=== PATIENT | female | born 1955 | race Caucasian/White ===

== ENCOUNTER → 2018-11-23 09:09 | Outpatient (CLI) | payer OTHER, SELFPAY ==
--- NOTE | 2018-11-23 | DI.MG.S_ITS ---
BILATERAL DIGITAL SCREENING MAMMOGRAM 3D/2D WITH CAD: 11/23/2018 CLINICAL: Routine screening. Family history of breast cancer. Comparison is made to exams dated: 11/08/2017 mammogram, 11/07/2015 mammogram, and 04/27/2013 mammogram - [facility]. The tissue of both breasts is heterogeneously dense. This may lower the sensitivity of mammography. Current study was also evaluated with a Computer Aided Detection (CAD) system. No significant masses, calcifications, or other findings are seen in either breast. There has been no significant interval change. IMPRESSION: NEGATIVE There is no mammographic evidence of malignancy. A 1 year screening mammogram is recommended. This exam was interpreted at Station ID: [id number]. NOTE: For mammograms, a report in lay terms will be sent to the patient. Approximately 15% of breast malignancies will not be visualized mammographically. In the management of a palpable breast mass, a negative mammogram must not discourage biopsy of a clinically suspicious lesion. Electronically Signed By: Sadie cochran/yvette:11/23/2018 11:47:40 letter sent: Normal Exam ACR BI-RADS Category 1: Negative 3341F
== END ==
PROVIDERS: Family Provider Family Medicine; PCP Family Medicine; Visit Provider Nurse Practitioner Family
DX: Z12.31 Encounter for screening mammogram for malignant neoplasm of breast (principal)
CPT/HCPCS: 77063; 77067

== ENCOUNTER → 2020-04-08 11:35 | Outpatient (CLI) | payer OTHER, SELFPAY ==
--- NOTE | 2020-04-08 | DI.MG.S_ITS ---
BILATERAL DIGITAL SCREENING MAMMOGRAM 3D/2D WITH CAD: 04/08/2020 CLINICAL: Routine screening. Family history of breast cancer. Comparison is made to exams dated: 11/23/2018 mammogram, 11/08/2017 mammogram, 11/29/2015 mammogram, and 11/07/2015 mammogram - [facility]. There are scattered fibroglandular elements in both breasts. Current study was also evaluated with a Computer Aided Detection (CAD) system. No significant masses, calcifications, or other findings are seen in either breast. There has been no significant interval change. IMPRESSION: NEGATIVE There is no mammographic evidence of malignancy. A 1 year screening mammogram is recommended. This exam was interpreted at Station ID: [id number]. NOTE: For mammograms, a report in lay terms will be sent to the patient. Approximately 15% of breast malignancies will not be visualized mammographically. In the management of a palpable breast mass, a negative mammogram must not discourage biopsy of a clinically suspicious lesion. Electronically Signed By: Saw don/yvette:04/08/2020 20:00:43 copy to: Ashley Leonard letter sent: Normal Exam ACR BI-RADS Category 1: Negative 3341F
== END ==
PROVIDERS: Family Provider Family Medicine; PCP Family Medicine; Referring Provider Family Medicine; Visit Provider Family Medicine
DX: Z12.31 Encounter for screening mammogram for malignant neoplasm of breast (principal); Z80.3 Family history of malignant neoplasm of breast
CPT/HCPCS: 77063; 77067

== ENCOUNTER → 2021-04-17 11:38 | Outpatient (CLI) | payer MEDICARE, OTHER, SELFPAY ==
--- NOTE | 2021-04-17 | DI.RAD.S_ITS ---
PROCEDURE: XR DEXA AXIAL SKELETON INDICATIONS: ROUTINE SCREENING COMPARISON: None. FINDINGS: This blank DEXA report has been sent in error by the PACS system. The correct and complete report will be forthcoming in 1-2 days. Thank you for your patience and understanding. Dictated by: Christina Parker MD, PhD on 04/17/2021 at 12:22 Approved by: Christina Parker MD, PhD on 04/17/2021 at 12:22
--- NOTE | 2021-04-17 | DI.MG.S_ITS ---
BILATERAL DIGITAL SCREENING MAMMOGRAM 3D/2D WITH CAD: 04/17/2021 CLINICAL: Routine screening. Family history of breast cancer. Comparison is made to exams dated: 04/08/2020 mammogram, 11/23/2018 mammogram, and 11/08/2017 mammogram - [facility]. There are scattered fibroglandular elements in both breasts. Current study was also evaluated with a Computer Aided Detection (CAD) system. No significant masses, calcifications, or other findings are seen in either breast. There has been no significant interval change. IMPRESSION: NEGATIVE There is no mammographic evidence of malignancy. A 1 year screening mammogram is recommended. This exam was interpreted at Station ID: [id number]. NOTE: For mammograms, a report in lay terms will be sent to the patient. Approximately 15% of breast malignancies will not be visualized mammographically. In the management of a palpable breast mass, a negative mammogram must not discourage biopsy of a clinically suspicious lesion. Electronically Signed By: Saw don/yvette:04/17/2021 15:06:56 copy to: Ashley Leonard letter sent: Normal Exam ACR BI-RADS Category 1: Negative 3341F
== END ==
PROVIDERS: PCP Internal Medicine; Referring Provider Internal Medicine; Visit Provider Internal Medicine
DX: Z12.31 Encounter for screening mammogram for malignant neoplasm of breast (principal); Z80.3 Family history of malignant neoplasm of breast; M85.852 Other specified disorders of bone density and structure, left thigh; Z78.0 Asymptomatic menopausal state; E05.00 Thyrotoxicosis with diffuse goiter without thyrotoxic crisis or storm; Z87.891 Personal history of nicotine dependence
CPT/HCPCS: 77063; 77067; 77080

== ENCOUNTER → 2021-09-18 08:35 | Outpatient (CLI) | payer MEDICARE, OTHER, SELFPAY ==
--- NOTE | 2021-09-18 | DI.CT.S_ITS ---
PROCEDURE: CT ABDOMEN PELVIS WO/W CON INDICATIONS: Gross hematuria TECHNIQUE: Optional 5 mm thick noncontrast images acquired from the diaphragm to the symphysis pubis. After the administration of intravenous contrast, 5 mm thick images acquired from the diaphragm to the symphysis pubis after a 10-minute delay. 2 mm thick coronal and sagittal reformats were then performed of the kidneys and ureters. For radiation dose reduction, the following was used: automated exposure control, adjustment of mA and/or kV according to patient size. COMPARISON: None. FINDINGS: Image quality: Excellent. Lung bases: Lung bases are clear. Heart size is normal. Urinary system: Both kidneys are normal in size, without hydronephrosis or nephrolithiasis on pre-contrast images. No perinephric fat stranding. There is normal bilateral renal enhancement. Renal calyces appear normal in morphology when filled with contrast. Opacified portions of both ureters demonstrate normal caliber. Bladder wall thickness is normal. No calcified bladder stones. Other solid organs: Liver is normal in size and enhancement. Gallbladder demonstrates no significant abnormality. Biliary system is non dilated. Pancreas enhances normally. Spleen is normal in size and enhancement. No adrenal nodules. Peritoneum and bowel: Within the right upper quadrant, there is a a focal inflammatory change seen at the level of the hepatic flexure. At the center of the inflammatory change, there is a 2 cm focus that is either a large diverticulum or a contained perforation. No james findings of abscess can be seen. Elsewhere within the colon, there is relatively prominent diverticulosis seen, without other foci of active diverticulitis. No dilated loops of small bowel are seen. No free air or significant free fluid can be seen. Nodes and vessels: No retroperitoneal or mesenteric adenopathy by size criteria. Aorta and inferior vena cava are normal in size. Abdominal wall: No ventral hernias. Pelvis: No pathologic free pelvic fluid. No inguinal hernias or adenopathy. Right groin clips are seen. This patient is status post hysterectomy. No adnexal masses are seen. Bones: No suspicious bony lesions. No vertebral body compression fractures. IMPRESSION: A cause of hematuria is not identified. Focal inflammatory change can be seen involving the hepatic flexure of the colon, which is attributed to focal diverticulitis. There is either a large 2 cm diverticulum or a contained perforation seen at the center of the inflammatory change. Surgical referral is recommended. When clinically appropriate (following adequate treatment of the patient's current clinical episode) a colonoscopy is recommended for further evaluation for a potential underlying mass (if not already recently done). Incidental note is made of: Hysterectomy Right groin clips Note: VINNIE Carvajal was not available to discuss this case at the time of this dictation. Findings and recommendations discussed by telephone with Dr. Jasmine at 9:25 a.m. on September 18, 2021. Dictated by: Wally Ramsey M.D. on 09/18/2021 at 9:19 Approved by: Wally Ramsey M.D. on 09/18/2021 at 9:29
== END ==
PROVIDERS: PCP Internal Medicine; Referring Provider Internal Medicine; Visit Provider Internal Medicine
DX: R31.0 Gross hematuria (principal); R10.9 Unspecified abdominal pain
CPT/HCPCS: 74178; Q9967

== ENCOUNTER → 2022-05-13 10:35 | Outpatient (CLI) | payer MEDICARE, OTHER, SELFPAY ==
--- NOTE | 2022-05-13 | DI.MG.S_ITS ---
BILATERAL DIGITAL SCREENING MAMMOGRAM 3D/2D WITH CAD: 05/13/2022 CLINICAL: Routine screening. Family history of breast cancer. Comparison is made to exams dated: 04/17/2021 mammogram, 04/08/2020 mammogram, 11/23/2018 mammogram, and 11/08/2017 mammogram - [facility]. Both breasts are heterogeneously dense, which may obscure small masses (category c / 51-75% glandular tissue). Current study was also evaluated with a Computer Aided Detection (CAD) system. No significant masses, calcifications, or other findings are seen in either breast. There has been no significant interval change. IMPRESSION: NEGATIVE There is no mammographic evidence of malignancy. A 1 year screening mammogram is recommended. Based on the Tyrer Cuzick model (a risk assessment model) the patient's lifetime risk is 11.6% and her 10 year risk is 5.9%. According to the ACR, ACS, and NCCN guidelines, an annual breast MRI exam along with mammogram is recommended if the patient's lifetime risk is 20% or greater. This exam was interpreted at Station ID: [id number]. NOTE: For mammograms, a report in lay terms will be sent to the patient. Approximately 15% of breast malignancies will not be visualized mammographically. In the management of a palpable breast mass, a negative mammogram must not discourage biopsy of a clinically suspicious lesion. Electronically Signed By: Maciej rizzo/yvette:05/13/2022 14:55:42 copy to: Ashley Leonard letter sent: Normal Exam ACR BI-RADS Category 1: Negative 3341F
== END ==
PROVIDERS: PCP Internal Medicine; Referring Provider Internal Medicine; Visit Provider Internal Medicine
DX: Z12.31 Encounter for screening mammogram for malignant neoplasm of breast (principal); Z80.3 Family history of malignant neoplasm of breast
CPT/HCPCS: 77063; 77067

== ENCOUNTER → 2023-06-04 12:18 | Outpatient (CLI) | payer MEDICARE, OTHER, SELFPAY ==
--- NOTE | 2023-06-04 | DI.MG.S_ITS ---
BILATERAL DIGITAL SCREENING MAMMOGRAM 3D/2D WITH CAD: 06/04/2023 CLINICAL: Routine screening. Family history of breast cancer. Comparison is made to exams dated: 05/13/2022 mammogram, 04/17/2021 mammogram, and 04/08/2020 mammogram - [facility]. Both breasts are heterogeneously dense, which may obscure small masses (category c / 51-75% glandular tissue). Current study was also evaluated with a Computer Aided Detection (CAD) system. No significant masses, calcifications, or other findings are seen in either breast. There has been no significant interval change. IMPRESSION: NEGATIVE There is no mammographic evidence of malignancy. A 1 year screening mammogram is recommended. Based on the Tyrer Cuzick model (a risk assessment model) the patient's lifetime risk is 11.1% and her 10 year risk is 5.9%. According to the ACR, ACS, and NCCN guidelines, an annual breast MRI exam along with mammogram is recommended if the patient's lifetime risk is 20% or greater. This exam was interpreted at Station ID: [id number]. NOTE: For mammograms, a report in lay terms will be sent to the patient. Approximately 15% of breast malignancies will not be visualized mammographically. In the management of a palpable breast mass, a negative mammogram must not discourage biopsy of a clinically suspicious lesion. Electronically Signed By: Maciej rizzo/yvette:06/04/2023 17:10:51 copy to: Ashley Leonard letter sent: Normal Exam ACR BI-RADS Category 1: Negative 3341F
== END ==
PROVIDERS: PCP Internal Medicine; Referring Provider Internal Medicine; Visit Provider Internal Medicine
DX: Z12.31 Encounter for screening mammogram for malignant neoplasm of breast (principal); Z80.3 Family history of malignant neoplasm of breast
CPT/HCPCS: 77063; 77067

== ENCOUNTER → 2023-07-13 10:07 | Outpatient (CLI) | payer MEDICARE, OTHER, SELFPAY ==
--- NOTE | 2023-07-13 10:09 | DI.RAD.S_ITS ---
Bone Density Report Name: SACHI PAUL Age: 67 Sex: Female Ethnicity: White Date of : 1955 Indication: osteopenia; Referring Provider: DAYNE GEORGE Study: Bone densitometry was performed. Exam Date: July 13, 2023 Accession number: [id number] Bone Density: Region BMD T-score Z-score Classification AP Spine(L1, L3, L4) 0.869 -1.7 0.3 Osteopenia Femoral Neck (Left) 0.671 -1.6 0.1 Osteopenia Total Hip (Left) 0.804 -1.1 0.3 Osteopenia Femoral Neck (Right) 0.742 -1.0 0.7 Normal Total Hip (Right) 0.787 -1.3 0.1 Osteopenia Total Hip Mean 0.796 -1.2 0.2 Osteopenia World Health Organization criteria for BMD impression classify patients as: Normal (T-score at or above -1.0), Osteopenia (T-score between -1.0 and -2.5), or Osteoporosis (T-score at or below -2.5). 10-year Fracture Risk(1): Major Osteoporotic Fracture 9.7% Hip Fracture 1.3% Reported Risk Factors: [place] (), Neck BMD=0.671, BMI=27.9 (1) FRAX(R) Version 3.08. Fracture probability calculated for an untreated patient. Fracture probability may be lower if the patient has received treatment. Previous Exams: -- Region Exam Age BMD T-score BMD Change BMD Change Date g/cm2 vs Baseline vs Previous -- AP Spine (L1,L3-L4) 07/13/2023 67 0.869 -1.7 -0.136 (-13.6%)# -0.136 (-13.6%)# 04/17/2021 65 1.005 -0.4 Total Hip(Left) 07/13/2023 67 0.804 -1.1 0.024 (3.0%)# 0.024 (3.0%)# 04/17/2021 65 0.781 -1.3 Total Hip(Right) 07/13/2023 67 0.787 -1.3 0.040 (5.3%)# 0.040 (5.3%)# 04/17/2021 65 0.747 -1.6 -- *Denotes significance at 95% confidence level, LSC for AP Spine = 0.022 g/cm2, LSC for Total Hip = 0.027 g/cm2 # Denotes dissimilar scan types or analysis methods Impression: The patient has low bone mass, based on the Total Spine T-score. The patient has an estimated ten-year risk of hip fracture of 1.3% and an estimated ten-year risk of major fracture of 9.7%, based on the WHO FRAX algorithm. No significant bone loss was observed. Discussion: BONE DENSITY IS LOW AT ONE OR MORE SKELETAL SITES. This patient's lowest T-score is low at one or more skeletal sites. It meets the World Health Organization's (WHO) criteria for low bone mass (T-score between -1.0 and -2.5). The patient's 10-year risk of fracture as calculated by FRAX is less than the threshold where pharmacological therapy is recommended by the National Osteoporosis Foundation (NOF). However, all treatment decisions require clinical judgment and consideration of individual patient factors, including patient preferences, comorbidities, previous drug use, risk factors not captured in the FRAX model (e.g., frailty, falls, vitamin D deficiency, increased bone turnover, interval significant decline in bone density) and possible under or overestimation of fracture risk by FRAX. The patient should follow a healthful lifestyle (good nutrition with adequate calcium and vitamin D, and appropriate weight-bearing exercise). Follow-Up: Consider repeating this study in 2 to 3 years to reassess this patient's status, or sooner if there is some new clinical indication. Reported by: MARYANA GONZALEZ M.D. on 07/13/2023 10:34:00 AM.
== END ==
PROVIDERS: PCP Internal Medicine; Referring Provider Internal Medicine; Visit Provider Internal Medicine
DX: M85.89 Other specified disorders of bone density and structure, multiple sites (principal)
CPT/HCPCS: 77080

== ENCOUNTER → 2024-08-23 14:37 | Outpatient (CLI) | payer MEDICARE, OTHER, SELFPAY ==
--- NOTE | 2024-08-23 14:39 | DI.MG.S_ITS ---
BILATERAL DIGITAL SCREENING MAMMOGRAM 3D/2D WITH CAD: 08/23/2024 CLINICAL: Routine screening. Family history of breast cancer. Comparison is made to exams dated: 06/04/2023 mammogram, 05/13/2022 mammogram, and 04/17/2021 mammogram - [facility]. There are scattered areas of fibroglandular density (category b / 25%-50% glandular tissue). Current study was also evaluated with a Computer Aided Detection (CAD) system. No significant masses, calcifications, or other findings are seen in either breast. There has been no significant interval change. IMPRESSION: NEGATIVE There is no mammographic evidence of malignancy. A 1 year screening mammogram is recommended. Based on the Tyrer Cuzick model (a risk assessment model) the patient's lifetime risk is 6.6% and her 10 year risk is 3.9%. According to the ACR, ACS, and NCCN guidelines, an annual breast MRI exam along with mammogram is recommended if the patient's lifetime risk is 20% or greater. This exam was interpreted at Station ID: [id number]. NOTE: For mammograms, a report in lay terms will be sent to the patient. Approximately 15% of breast malignancies will not be visualized mammographically. In the management of a palpable breast mass, a negative mammogram must not discourage biopsy of a clinically suspicious lesion. Electronically Signed By: Saw don/yvette:08/24/2024 18:04:11 copy to: Ashley Leonard letter sent: Normal Exam ACR BI-RADS Category 1: Negative
== END ==
PROVIDERS: PCP Family Medicine; Referring Provider Internal Medicine; Visit Provider Internal Medicine
DX: Z12.31 Encounter for screening mammogram for malignant neoplasm of breast (principal); Z80.3 Family history of malignant neoplasm of breast
CPT/HCPCS: 77063; 77067

== ENCOUNTER → 2024-10-24 12:45 | Outpatient (CLI) | payer MEDICARE, OTHER, SELFPAY ==
--- NOTE | 2024-10-24 12:47 | DI.RAD.S_ITS ---
PROCEDURE: XR DEXA AXIAL SKELETON INDICATIONS: SCREENING FOR OSTEOPOROSIS COMPARISON: [facility], RAIMUNDO, XR DEXA AXIAL SKELETON, 07/13/2023, 10:21. FINDINGS: Lumbar Spine: Bone mineral density 0.869 (previously 0.869) g/cm2, T score -1.7 (previously-1.7). Left Femoral Neck: Bone mineral density 0.645 (previously 0.671) g/cm2, T score -1.8 (previously-1.6) Left Hip: Bone mineral density 0.784 (previously 0.804) g/cm2, T score -1.3 (previously-1.1). Fracture Risk Calculation (when applicable): 10-year fracture risk of a major osteoporotic fracture 11 percent and of a hip fracture 1.8 percent. (T score greater or equal to -1.0 to: NORMAL) (T score from -1.1 to -2.4: OSTEOPENIA) (T score less than or equal to -2.5: OSTEOPOROSIS) IMPRESSION: Osteopenia---recommend repeat DEXA in 2-3 years for reassessment. Follow-up guidelines as follows: Osteoporosis: Consider a repeat DEXA and Vertebral Fracture Assessment (VFA) exam in 2 years or sooner if medically necessary, to reassess this patient's status. Osteopenia: Consider a repeat DEXA in 2-3 years to reassess this patient's status, or if there is a new clinical indication. Normal: Consider a repeat DEXA in 5 years or sooner, or if there is a new clinical indication. All treatment decisions require clinical judgment and consideration of individual patient factors, including patient preferences, comorbidities, previous drug use, risk factors not captured in the FRAX model (e.g., frailty, falls, vitamin D deficiency, increased bone turnover, interval significant decline in bone density ) and possible under- or over-estimation of fracture risk by FRAX. In addition, the NOF Guide recommends that FDA-approved medical therapies be considered in postmenopausal women and men age >= 50 years with a: * Hip or vertebral (clinical or morphometric) fracture * T-score of <=-2.5 at the spine or hip * Ten-year fracture probability by FRAX of >= 3% for hip fracture or >=20% for major osteoporotic fracture. Dictated by: Jerry Gao M.D. on 10/25/2024 at 2:45 Approved by: Jerry Gao M.D. on 10/25/2024 at 2:47
== END ==
PROVIDERS: PCP Family Medicine; Referring Provider Family Medicine; Visit Provider Family Medicine
DX: Z78.0 Asymptomatic menopausal state (principal); M85.89 Other specified disorders of bone density and structure, multiple sites
CPT/HCPCS: 77080

== ENCOUNTER 2025-01-16 07:22 | Day surgery (SDC) | payer MEDICARE, OTHER, SELFPAY ==
--- NOTE | 2025-01-16 | PATH_ITS ---
[facility] Accession Number: [id number] No. of containers..01 Tissue . 01 Material submitted: . colon - COLON, POLYP @ 20CM . 01 Diagnosis: COLON, POLYP @ 20CM: Tubular adenoma. [facility] 01/22/20251653 Local . 01 Electronically signed: . Maurice Sanchez MD, Pathologist NPI- [id number] . 01 Gross description: . POLYP @ 20CM: Received in formalin is 1 fragment of call soft tissue measuring 0.8 x 0.7 x 0.6 cm. Specimen is submitted in its entirety in 1 cassette. /KT 01/22/20251653 Local . 01 Pathologist provided ICD-10: D12.6 . 01 CPT . 897198 Specimen Comment: A courtesy copy of this report has been sent to [facility] Pathology Performed at: [address] [address], [place], [place] [id number] MD Maurice Sanchez MD Phone: [phone]
[2025-01-16] MEDS: LACTATED RINGERS 1,000 ML 42 ML IV (07:31)
[2025-01-16 07:40] VITALS: BP 148/84; PULSE 80; RESP 17; TEMP 37.4; O2SAT 98
--- NOTE | 2025-01-16 08:07 | PM.PREOP ---
Pre-operative Note COVID-19 COVID-19 status: Not tested Interval Note History & Physical reviewed/Exam performed by Physician: Yes Changes to H&P: No ASA Class (for procedural sedation): II
[2025-01-16] MEDS: GLUCAGON,HUMAN RECOMBINANT 1 MG/ML VIAL IV (08:44)
[2025-01-16 09:13] VITALS: BP 120/68; PULSE 62; RESP 22; TEMP 36.1; O2SAT 93
--- NOTE | 2025-01-16 09:17 | P.OP.COLON_ITS ---
Operative Date/Time/Diagnoses Date of procedure: 01/16/25 Time of procedure: 08:30 Pre-op diagnosis: Abnormal fit test Post-op diagnosis: same Procedure & Clinicians Study performed: Aborted colonoscopy Same procedure as scheduled: Yes Indications: Abnormal fit test Surgeon: Dominic Bran Procedure Notes Procedure in detail: After obtaining informed consent properly identifying the patient the patient was transported to the endo suite. IV sedation was administered and the patient was rolled to the left lateral decubitus position. A 2 m flexible fiberoptic colonoscope was passed transanally into the rectum and was advanced under direct endoscopic vision to 50 cm. The sigmoid colon was remarkable in appearance for its extreme tortuosity and multiple large diverticula. After several attempts at advancing the scope beyond 50 cm it was determined that this could not safely be accomplished given the tortuosity of the sigmoid colon and the magnitude of diverticular changes. Prep was marginal. The instrumented portion of the colon was examined retrograde. Multiple large mouth diverticuli were in evidence at the sigmoid colon. There were no other mucosal abnormalities. At 20 cm of the rectosigmoid a 7 mm sessile polyp was id entified. This was removed with a hot snare and was captured for pathology in the [place] trap. The rectum was normal as the scope was withdrawn. The patient tolerated the procedure well and was transported to the recovery room in good condition. Scope withdrawal time: 906 Findings: polyp(s) Specimen(s): other (Polyp at 20 cm) Complications: none Impression: Severe sigmoid diverticulosis. Polyp at 20 cm. Post-procedure Recommendations: Colonoscopy in 1 year Plan for aftercare: Follow on barium enema to complete evaluation of the colon to be arranged through my office. We will follow up with the patient upon completion of the barium study for review of findings and pathology on the excised polyp. Follow up: weeks (2) Disposition: PACU
[2025-01-16 09:19] VITALS: BP 129/75; PULSE 85; RESP 16; O2SAT 95
[2025-01-16 09:23] VITALS: BP 122/84; PULSE 78; RESP 16; TEMP 36.2; O2SAT 97
== END 2025-01-16 09:48 | disposition home or self-care (01) ==
PROVIDERS: PCP Family Medicine; Referring Provider Surgery; Visit Provider Surgery
PROC: 0DJD8ZZ Inspection of Lower Intestinal Tract, Via Natural or Artificial Opening Endoscopic (ICD-10-PCS; CPT 45378; principal; 2025-01-16 08:30)
DX: Z12.11 Encounter for screening for malignant neoplasm of colon (principal); R19.5 Other fecal abnormalities; K57.30 Diverticulosis of large intestine without perforation or abscess without bleeding; D12.6 Benign neoplasm of colon, unspecified
CPT/HCPCS: 45338; J1610; J2405; J2704